=== PATIENT | female | born 1950 | race Caucasian/White ===

== ENCOUNTER → 2023-11-28 | Outpatient (CLI) | payer MEDICARE, OTHER | END | disposition home or self-care (01) | LOC: RAD 13:55 | PROVIDERS: ATTEND Orthopaedic Surgery | DX: Z13.820 Encounter for screening for osteoporosis (principal); M81.0 Age-related osteoporosis without current pathological fracture; Z78.0 Asymptomatic menopausal state ==

== ENCOUNTER 2025-01-25 02:54 | Emergency (ER) | payer MEDICARE, OTHER ==
[~2025-01-25] VITALS: Ht 160 cm; Wt 67.1 kg
[~2025-01-25 02:54] MED LIST: AMLODIPINE BESYL5 MG PO; CITALOPRAM20 MG PO; METHOTREXATE2.5 MG PO; PREDNISONE2.5 MG PO; ROSUVASTATIN CA20 MG PO; VITAMIN D250 MCG PO
[2025-01-25] MEDS ORDERED: Ondansetron Hydrochloride 4 MG/2 ML VIAL IV ONE (03:15)
[2025-01-25 03:58] LABS: BASO # 0.0 10*3/uL (0.0-0.1); BASO % 0.1 % (0.0-1.0); EOS # 0.0 10*3/uL (0.0-0.4); EOS % 0.0 % (1.0-4.0); MEAN CELL VOLUME 100.5 fl (81.0-99.0); MEAN CORPUSCULAR HGB 33.3 pg (27.0-31.0); MEAN PLATELET VOLUME 9.3 fl (9.6-12.3); MONO # 0.9 10*3/uL (0.1-1.0); MONO % 6.5 % (3.0-9.0); NEUT # 12.3 10*3/uL (2.3-7.9); NEUT % 87.6 % (47.0-73.0); NUCLEATED RED BLOOD CELL 0.0 % (0.0-0.0); NUCLEATED RED BLOOD CELL 0.0 10*3/uL (0.0-0.0); PLATELET COUNT AUTOMATED 231 10*3/uL (130-400); RED CELL DISTRI WIDTH 15.4 % (0-14.5)
[2025-01-25 04:20] LABS: BILIRUBIN Negative (Negative); BLOOD 3+ (Negative); CLARITY Clear (Clear); COLOR Yellow (Yellow); KETONE 1+ (Negative); LEUKO ESTERASE Negative (Negative); NITRITE Negative (Negative); PH 6.5 (4.5-8.0); SPECIFIC GRAVITY 1.025 (1.001-1.030); UROBILINOGEN 1.0 E.U./dl (0.0-1.0)
[2025-01-25 04:25] LABS: BUN 21.0 mg/dl (9-23); SGPT/ALT 22.0 U/L (5-49)
[2025-01-25 04:28] LABS: EPITHELIAL CELLS 31-40
[2025-01-25 04:29] LABS: BACTERIA TRACE; RBC 16-20 rbc/hpf (0-2); WBC 0-2 wbc/hpf (0-5); YEAST TRACE
[2025-01-25] MEDS ORDERED: Iodixanol 320 100 ML VIAL IV ONE (05:25)
[2025-01-25] MEDS ORDERED: IOHEXOL 300 MG/ML 100 ML VIAL IV ONE (05:30)
[2025-01-25] MEDS ORDERED: IOHEXOL 300 MG/ML 100 ML VIAL ONE (05:48)
[2025-01-25] MEDS ORDERED: diphenhydrAMINE hydrochloride 50 MG/ML VIAL IV ONE (06:10)
== END 2025-01-25 10:25 | disposition short-term general hospital (02) ==
LOC: ED 02:54
PROVIDERS: Emergency Medicine
DX: S32.019A Unspecified fracture of first lumbar vertebra, initial encounter for closed fracture (principal); R31.9 Hematuria, unspecified; R11.10 Vomiting, unspecified; Z88.1 Allergy status to other antibiotic agents; Z79.899 Other long term (current) drug therapy; W10.8XXA Fall (on) (from) other stairs and steps, initial encounter; Y93.89 Activity, other specified; Y92.89 Other specified places as the place of occurrence of the external cause; Y99.8 Other external cause status